=== PATIENT | male | born 1995 | race Caucasian/White ===

== ENCOUNTER → 2016-06-21 | Outpatient (CLI) | payer OTHER ==
[~2016-06-21] MED LIST: ISOVUE-370 76% 100ML VIAL (Q9967) As Ordered ONE
--- NOTE | 2016-06-21 10:52 | REP ---
CT of the chest with IV contrast: Comparison study is 05/11/2016 ([place], [place]). On the comparison plain film study. There is a small focal 4 mm pleural-based nodular density at the periphery of the right lung with a linear density density extending from this 4 mm nodule toward the right hilus. CT is for evaluation of this finding on the plain film study. By CT there is tenting of the lateral pleura in the right hemithorax circumferentially at its junction with the lateral portion of the major fissure. A portion of this emptying that is perpendicular to the x-ray beam appears as a small pleural nodule on plain films. The linear stranding toward the right hilus is artifact from the major fissure. There are no masses otherwise. There is no scarring or retraction. The lung beyer otherwise clear. There are no infiltrates or effusions. There are no nodules or masses otherwise. Additionally there is an accessory pleural stripe anteromedially in the right lower lobe adjacent to the right lateral margin of the heart inferiorly, not visible on the PA and lateral plain films. There is no mediastinal, hilar or axillary lymphadenopathy. The thoracic aorta is unremarkable. Cardiac size is normal. There is no pericardial effusion. The visualized upper abdominal contents are unremarkable. Impression: The finding in the right upper lobe on the comparison plain film study is an artifact from the pleural stripe of the major fissure. 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 Normal CT study of the chest with pleural stripe congenital variations. Signed by Serge Olmstead MD 06/21/2016 10:43 A
== END ==
LOC: M RAD 08:50
PROVIDERS: ATTEND Physician Assistant
DX: R91.8 Other nonspecific abnormal finding of lung field (principal)